=== PATIENT | female | born 1940 | race Caucasian/White ===

== ENCOUNTER 2017-01-15 07:33 | Day surgery (SDC) | payer MEDICARE, OTHER ==
[2017-01-15] VITALS (12 sets, daily range): BP systolic 96–149; BP diastolic 44–87; PULSE 67–93; TEMP 97.8–98.7
[~2017-01-15] VITALS: Ht 162.6 cm; Wt 88.1 kg
[~2017-01-15 07:33] MED LIST: ASPIRIN 81M81 MG/TA2 PO; CALCIUM 600600 MG PO; COENZYME Q-10100 MG PO; COZAAR100 MG PO; DEXILANT60 MG PO; DITROPAN 5MG TAB5 MG PO; EVISTA 60MG60 MG/TAB PO; HAIR FORMULA EX1 TAB; HCTZ12.5TAB PO; LEVOXYL0.075 MG PO; MACRODANTIN100 PO; MOBIC 7.5MG7.5 MG PO; NATURAL E400 IU PO; NEURONTIN300 MG/CAP PO; NEXIUM 40MG40 MG PO; OMEGA 31000 MG PO; PHARMASSURE ZIN50 MG PO; PRAVACHOL 40MG40 MG PO; TENORMIN 5050 MG/TAB PO; TOPROL XL 50MG50 MG PO; ULTRAM 50MG TAB50 MG PO; VITAMIN B COMPL1 TA1 PO; VITAMIN C500 MG PO; VITAMIN D31000 I1 PO; ZYRTEC 10MG10 MG PO
[2017-01-15 08:50] LABS: HEMATOCRIT 36.9 % (37.0-47.0); HEMOGLOBIN 12.4 g/dl (12.5-16.0); MEAN CELL VOLUME 90 fl (80.0-100.0); MEAN CORPUSCULAR HEMOGLOBIN 30 pg (27.0-31.0); MEAN CORPUSCULAR HGB CONC 34 g/dl (33.0-37.0); MEAN PLATELET VOLUME 11.5 fl (7.4-10.4); PLATELET COUNT 231 K/mm3 (130-400); RED BLOOD COUNT 4.12 M/mm3 (4.10-5.30); REDCELL DISTRIBUTION WIDTH-CV 13.1 % (11.5-14.5); WHITE BLOOD COUNT 4.8 K/mm3 (4.8-10.8)
[2017-01-15] MEDS ORDERED: NORCO 325 MG-51 TAB PO (09:20)
[2017-01-15] MEDS ORDERED: NORVASC 5MG5 MG/TAB PO (09:20)
[2017-01-15] MEDS ORDERED: ZANAFLEX CAPSULE4 MG PO (09:21)
[2017-01-15] MEDS ORDERED: PLAVIX 75MG TAB75 MG PO (09:21)
[2017-01-15] MEDS ORDERED: COREG 3.123.125 MG/T PO (09:23)
[2017-01-15] MEDS ORDERED: DIOVAN 160MG160 MG PO (09:23)
[2017-01-15] MEDS ORDERED: LIPITOR 10MG10 MG PO (09:24)
[2017-01-15] MEDS ORDERED: K-TAB10 PO (09:24)
[2017-01-15] MEDS ORDERED: ASPIRIN 81M81 MG/TA2 PO (09:24)
[2017-01-15] MEDS ORDERED: TESSALON P100 MG/CAP PO (09:25)
[2017-01-15] MEDS ORDERED: COLACE 100100 MG/CAP PO (09:26)
[2017-01-15 09:32] LABS: CALCIUM 9.9 mg/dL (8.4-10.2); CREATININE, serum 1.11 mg/dL (0.52-1.25); POTASSIUM 4.2 mmol/L (3.4-5.0)
[2017-01-15 09:59] LABS: INR 1.1 (0.8-3.0); PROTHROMBIN TIME 12.3 SECONDS (9.7-12.8)
[2017-01-16 03:33] VITALS: BP 106/51; PULSE 69; TEMP 98.7
[2017-01-16 08:47] VITALS: BP 93/41; PULSE 66; TEMP 98.2
[2017-01-16 10:58] VITALS: BP 114/49
[2017-01-16] MEDS ORDERED: CLEOCIN HCL300 MG PO (11:31)
== END 2017-01-16 12:15 | disposition home or self-care (01) ==
LOC: EUO 07:33 → COL.CAR 08:40 → MEDICAL 12:19 → EUO 01-16 12:15
PROVIDERS: Internal Medicine Cardiovascular Disease
DX: I44.2 Atrioventricular block, complete (principal); R55 Syncope and collapse; I25.10 Atherosclerotic heart disease of native coronary artery without angina pectoris; I08.3 Combined rheumatic disorders of mitral, aortic and tricuspid valves; I27.2 Other secondary pulmonary hypertension; E78.5 Hyperlipidemia, unspecified; K21.9 Gastro-esophageal reflux disease without esophagitis; D12.6 Benign neoplasm of colon, unspecified; G35 Multiple sclerosis; Z79.01 Long term (current) use of anticoagulants; Z87.891 Personal history of nicotine dependence; Z86.73 Personal history of transient ischemic attack (TIA), and cerebral infarction without residual deficits; Z82.3 Family history of stroke; Z80.9 Family history of malignant neoplasm, unspecified; Z82.49 Family history of ischemic heart disease and other diseases of the circulatory system
CPT/HCPCS: OP; C1769; C1785; C1894; C1898; J2250; J3010; J3370; J7030; J7050; Q9967

== ENCOUNTER 2019-03-30 04:56 | Inpatient (IN) | payer MEDICARE, OTHER ==
[2019-03-30] VITALS (8 sets, daily range): BP systolic 97–148; BP diastolic 40–71; PULSE 78–90; TEMP 97–100.6
[~2019-03-30] VITALS: Ht 162.6 cm; Wt 77.2 kg
[~2019-03-30 04:56] MED LIST changes: +CLEOCIN HCL300 MG PO; +COLACE 100100 MG/CAP PO; +COREG 3.123.125 MG/T PO; +DIOVAN 160MG160 MG PO; +K-TAB10 PO; -LEVOXYL0.075 MG PO; +LEVOXYL0.088 MG PO; +LIPITOR 10MG10 MG PO; +NORCO 325 MG-51 TAB PO; +NORVASC 5MG5 MG/TAB PO; +PLAVIX 75MG TAB75 MG PO; +TESSALON P100 MG/CAP PO; +ZANAFLEX CAPSULE4 MG PO
[2019-03-30 05:27] LABS: BASO # 0.1 (0.0-0.2); BASO % 1.1 % (0.0-2.0); EOS # 0.2 (0.0-0.7); EOS % 2.4 % (0-4.0); GRAN # 4.7 (1.4-6.5); GRAN % 67.6 % (42.2-75.2); HEMATOCRIT 37.3 % (37.0-47.0); HEMOGLOBIN 12.3 g/dl (12.5-16.0); LYMPH # 1.3 (1.2-3.4); LYMPH % 19.2 % (20.0-51.0); MEAN CELL VOLUME 92 fl (80.0-100.0); MEAN CORPUSCULAR HEMOGLOBIN 30 pg (27.0-31.0); MEAN CORPUSCULAR HGB CONC 33 g/dl (33.0-37.0); MEAN PLATELET VOLUME 10.4 fl (7.4-10.4); MONO # 0.7 (0.1-0.6); MONO % 9.6 % (1.7-9.3); PLATELET COUNT 183 K/mm3 (130-400); RED BLOOD COUNT 4.05 M/mm3 (4.10-5.30); REDCELL DISTRIBUTION WIDTH-CV 13.3 % (11.5-14.5)
[2019-03-30 05:31] LABS: INR 1.2 (0.8-3.0); PROTHROMBIN TIME 14.6 SECONDS (9.7-12.8)
[2019-03-30 05:37] LABS: ALANINE AMINOTRANSFERASE 15 U/L (9-52); ALKALINE PHOSPHATASE 52 U/L (50-136); ANION GAP 8 mmol/L (7-16); AST,SGOT 32 U/L (15-37); BILIRUBIN,TOTAL 0.5 mg/dL (0.0-1.0); BLOOD UREA NITROGEN 27 mg/dL (7-17); CALCIUM 9.7 mg/dL (8.4-10.2); CARBON DIOXIDE 25 mmol/L (22-30); CHLORIDE 107 mmol/L (98-107); CREATININE, serum 1.45 (0.52-1.25); GLUCOSE 113 mg/dL (74-106); LIPASE 184 U/L (23-300); POTASSIUM 4.2 mmol/L (3.4-5.0); SODIUM 140 mmol/L (137-145)
[2019-03-30 05:51] LABS: TROPONIN-I < 0.012 ng/mL (0.000-0.035)
[2019-03-30] MEDS ORDERED: PROTONIX 40MG T40 MG PO ×2 (10:05→11:01)
--- NOTE | 2019-03-30 10:13 | NUR ---
Patient arrived to room via stretcher from ER. Upon arriving patient reported having chest pain. PRN nitroglycerin available and administered. Spoke with provider, they were down to assess, received order for PRN morphine and this was administered. O2 sats noted to decrease to 89% on 2L, did increase O2 to 3L, this did not make a change, increased to 4L, currently at 96%. Repeat EKG obtained. Patient states now that morphine has not helped with pain but was noted to have eyes closed and snoring. Family is currently at bedside. Patient stating again that she is having sharp pain and pressure, the pressure is a new complaint at this time. Provider will be notified.
[2019-03-30] MEDS ORDERED: PROLIA60 MG/ML SQ (10:46)
[2019-03-30] MEDS ORDERED: ALLEGRA 180MG180 MG PO (10:47)
[2019-03-30] MEDS ORDERED: MULTI-VITAMIN W1 TA1 PO (10:49)
[2019-03-30] MEDS ORDERED: ELIQUIS 5MG PO (10:50)
[2019-03-30] MEDS ORDERED: LASIX 20MG TABL20 MG PO (10:59)
[2019-03-30] MEDS ORDERED: VESICARE10 MG PO (11:00)
[2019-03-30] MEDS ORDERED: BENICAR 20MG TA20 MG PO (11:00)
[2019-03-30] MEDS ORDERED: MOBIC 7.5MG7.5 MG PO (11:01)
[2019-03-30] MEDS ORDERED: ANTIVERT 12.512.5 MG PO (11:03)
--- NOTE | 2019-03-30 14:11 | NUR ---
SW met with the patient to discuss a discharge plan. The pt lives alone in [place]. The pt uses oxygen at night and receives supplies from [facility] and does not have other DME. Patient reports independence with ADLs. The pt's PCP is Dr. Jones and two dental office manager follwer her care. The pt receives medications from [place] and pt's daughter assists when needed. The pt does have advanced directives in the EMR. PT/OT will be ordered. SW will follow to ensure a safe discharge.
--- NOTE | 2019-03-30 15:14 | NUR ---
Pt report received from ANGEL Boogie. Pt resting in bed upon entry, family at [facility]. Pt is A/O x3. Her breathing is even and unlabored, currently on RA. Pt reports mid sternum chest pain /, PRN pain medication administered. Pt ate approximately half of lunch, denies N/V. IVF infusing into RFA without complications. POC discussed with patient and family who verbalize understanding. No needs at this time. Call light within reach.
--- NOTE | 2019-03-30 18:53 | NUR ---
Pt continues to report chest pain ranging from 3-6/10, PRN Morphine administered. Nitro paste placed to chest. Pt had small amount of emesis this afternoon, denied further nausea. IVF infusing without complications. POC discussed with patient and her family who verbalize understanding. No needs at this time. Call light within reach.
--- NOTE | 2019-03-30 20:23 | NUR ---
PT IN BED WITH HOB ELEVATED TO 60 DEGREE ANGLE. PT'S O2 SATURATIONS WAS REPORTED TO BE 89% ON 2L/NC AND TEMP 100.6. RECHECKED O2 SATURATIONS AND TEMP. O2 SATURATIONS AT 91% ON 2L/NC AND TEMP 99.0 ORALLY. PT WAS ASSISTED UP TO THE BATHROOM AND THEN BACK TO BED. PT ADVISED THAT SHE WAS STARTING TO HAVE PAIN WHEN SHE GOT UP AND IT IS A 2/10 SHARP, FEELS LIKE SOMEONE IS POKING HER WITH A KNIFE. ADVISED PT THAT WILL GIVE PAIN MEDICATION TO HELP WITH THE PAIN. CALL LIGHT WITHIN REACH.
--- NOTE | 2019-03-30 23:01 | NUR ---
PT RESTING IN BED WITH HOB ELEVATED TO 45 DEGREE ANGLE AND O2 ON 3L/NC. PT'S TEMP SLOWLY GOING UP. IT WAS 99.0 AT 2000 AND AT 2200 WENT UP TO 99.2. CALLED DONALD COLLAZO TO REQUEST TYLENOL, BUT DONALD COLLAZO WANTED TO WAIT TO SEE IF HER TEMP GOES UP ANYMORE. PT DOES NOT FEEL HOT OR WARM. PT IS COMFORTABLE NOW AND ADVISED THAT THE LAST PAIN MEDICATION THAT WAS GIVEN TO HER MADE HER FEEL SO MUCH BETTER. PT HAS CALL LIGHT WITHIN REACH AND DECLINES ANY FOOD AT THIS TIME. PT IS AWARE THAT SHE IS NPO AT MIDNIGHT.
[2019-03-31] VITALS (15 sets, daily range): BP systolic 91–145; BP diastolic 45–63; PULSE 61–134; TEMP 98.4–99.9
[2019-03-31 06:34] LABS: BASO % 0.5 % (0.0-2.0); EOS # 0.1 (0.0-0.7); EOS % 1.2 % (0-4.0); GRAN # 4.9 (1.4-6.5); GRAN % 62.9 % (42.2-75.2); LYMPH # 1.7 (1.2-3.4); LYMPH % 21.5 % (20.0-51.0); MEAN CELL VOLUME 94 fl (80.0-100.0); MEAN CORPUSCULAR HGB CONC 32 g/dl (33.0-37.0); MEAN PLATELET VOLUME 11.1 fl (7.4-10.4); MONO # 1.1 (0.1-0.6); MONO % 13.6 % (1.7-9.3); PLATELET COUNT 146 K/mm3 (130-400); RED BLOOD COUNT 3.36 M/mm3 (4.10-5.30); REDCELL DISTRIBUTION WIDTH-CV 13.6 % (11.5-14.5)
[2019-03-31 06:41] LABS: HEMATOCRIT 31.5 % (37.0-47.0); HEMOGLOBIN 10.1 g/dl (12.5-16.0); MEAN CORPUSCULAR HEMOGLOBIN 30 pg (27.0-31.0)
[2019-03-31 06:56] LABS: ANION GAP 5 mmol/L (7-16); BLOOD UREA NITROGEN 20 mg/dL (7-17); CALCIUM 8.2 mg/dL (8.4-10.2); CARBON DIOXIDE 24 mmol/L (22-30); CHLORIDE 109 mmol/L (98-107); CHOLESTEROL 137 mg/dL (120-200); CHOLESTEROL RISK RATIO 2.9; CREATININE, serum 1.18 (0.52-1.25); GLUCOSE 97 mg/dL (74-106); HDL CHOLESTEROL 47 mg/dL; LDL CHOLESTEROL 74 mg/dL; POTASSIUM 4.3 mmol/L (3.4-5.0); SODIUM 138 mmol/L (137-145); TRIGLYCERIDE 81 mg/dL
[2019-03-31 07:02] LABS: TROPONIN-I < 0.012 ng/mL (0.000-0.035)
--- NOTE | 2019-03-31 07:26 | NUR ---
UNEVENTFUL NIGHT FOR PT. GAVE PT MORPHINE ABOUT 2036 FOR PAIN THAT WAS RATED A 5/10 AND AFTER THAT PT HAD NO MORE C/O PAIN. PT WAS AWARE THAT SHE WAS NPO AFTER MIDNIGHT AND HAD NOTHING TO EAT OR DRINK AFTER THAT. PT DID GET UP A FEW TIMES TO GO TO THE BATHROOM AND THEN BACK TO BED. NO ASSISTIVE DEVICES USED, GAIT STEADY. PT ADVISED THAT HER SISTER HAD JUST , AND THE BURIAL WAS ON 03/30, BUT SHE COULD NOT MAKE IT BECAUSE SHE WAS HAVING CHEST PAIN. PT'S DAUGHTER CAME BY THIS AM AND PT ADVISED THAT SHE DID NOT HAVE ANY PAIN ALL NIGHT LONG. PT IN BED WITH HOB ELEVATED TO 45 DEGREE ANGLE, CALL LIGHT WITHIN REACH AND NO NEEDS AT THIS TIME.
--- NOTE | 2019-03-31 08:00 | NUR ---
FOUND PT OFF O2 RA SP02 80%. PLACED BACK ON 4 LPMNC 91%.
--- NOTE | 2019-03-31 08:20 | NUR ---
Patient has gone for stress test.
--- NOTE | 2019-03-31 10:40 | NUR ---
Initial visit; Patient's daughter thanked Transfer Clerk for looking in on her and offering her mom God's blessings and prayer if she would like.
--- NOTE | 2019-03-31 11:31 | NUR ---
PT SATS FOUND TO BE 88% ON 2L PER NC, INCREASED O2 AT THIS TIME TO 4.5L TO MAINTAIN SAT AT 90%. PT IS SLEEPING AND DOES NOT APPEAR TO BE IN DISTRESS. FAMILY AT BEDSIDE.
[2019-03-31 16:18] LABS: COLLECTION METHOD CLEAN CATCH
[2019-03-31 16:48] LABS: MUCOUS Present /lpf; PH 5 (5-8); SQUAMOUS EPITHELIAL 0-2 /hpf; URINE APPEARANCE Hazy; URINE BACTERIA None Seen /hpf; URINE BILIRUBIN Negative (NEGATIVE); URINE BLOOD Negative (NEGATIVE); URINE COLOR Yellow; URINE GLUCOSE Negative (NEGATIVE); URINE KETONE Negative (NEGATIVE); URINE LEUKOCYTE ESTERASE Negative (NEGATIVE); URINE NITRATE Negative (NEGATIVE); URINE PROTEIN(semi-quant) Negative (NEGATIVE); URINE RBC 0-2 /hpf; URINE UROBILINOGEN Negative (NEGATIVE)
--- NOTE | 2019-03-31 18:08 | NUR ---
Patient is awaiting supper in room. Has no pain. Call light and personal items are within reach.
[2019-03-31 18:13] LABS: HEMOGLOBIN 10.8 g/dl (12.5-16.0); MEAN CELL VOLUME 92 fl (80.0-100.0); MEAN CORPUSCULAR HEMOGLOBIN 31 pg (27.0-31.0); MEAN CORPUSCULAR HGB CONC 33 g/dl (33.0-37.0); MEAN PLATELET VOLUME 11.3 fl (7.4-10.4); PLATELET COUNT 151 K/mm3 (130-400); RED BLOOD COUNT 3.52 M/mm3 (4.10-5.30); REDCELL DISTRIBUTION WIDTH-CV 13.5 % (11.5-14.5)
[2019-03-31 18:19] LABS: HEMATOCRIT 32.3 % (37.0-47.0)
[2019-03-31 18:22] LABS: INR 1.2 (0.8-3.0); PROTHROMBIN TIME 14.2 SECONDS (9.7-12.8)
[2019-03-31 18:25] LABS: PARTIAL THROMBOPLASTIN TIME 31.6 SECONDS (26.0-37.0)
[2019-03-31 18:27] LABS: CALCIUM 8.2 mg/dL (8.4-10.2); CREATININE, serum 1.1 (0.52-1.25); POTASSIUM 4.2 mmol/L (3.4-5.0)
--- NOTE | 2019-03-31 20:55 | NUR ---
Patient resting in bed. Alert and oriented. Vitals normal. Denies any pain at this time. Pulses strong. +1 edema in BLE. Was wondering about what time her procedure was in the AM. Denies any further needs at this time. Call light within reach.
[2019-04-01] VITALS (11 sets, daily range): BP systolic 123–160; BP diastolic 48–77; PULSE 74–87; TEMP 98.4–99
--- NOTE | 2019-04-01 05:28 | NUR ---
Patient had uneventful night. Had some issues with tele box, wires changed and pads changed. Resting in bed. Denied pain throughout the night. Call light within reach.
--- NOTE | 2019-04-01 07:00 | NUR ---
Report received from Fabio Urbina. Pt in bed resting with family at bedside, anticipating heart cath today. Denies needs, will continue to monitor.
--- NOTE | 2019-04-01 07:03 | NUR ---
Report given to ANGEL Monsalve.
[2019-04-01 07:38] LABS: BASO # 0.1 (0.0-0.2); BASO % 0.7 % (0.0-2.0); EOS # 0.1 (0.0-0.7); EOS % 1.8 % (0-4.0); GRAN # 5.2 (1.4-6.5); GRAN % 67.6 % (42.2-75.2); HEMOGLOBIN 10.5 g/dl (12.5-16.0); LYMPH # 1.4 (1.2-3.4); MEAN CELL VOLUME 94 fl (80.0-100.0); MEAN CORPUSCULAR HEMOGLOBIN 30 pg (27.0-31.0); MEAN CORPUSCULAR HGB CONC 32 g/dl (33.0-37.0); MEAN PLATELET VOLUME 11.1 fl (7.4-10.4); MONO # 0.9 (0.1-0.6); MONO % 11.5 % (1.7-9.3); PLATELET COUNT 152 K/mm3 (130-400); RED BLOOD COUNT 3.49 M/mm3 (4.10-5.30); REDCELL DISTRIBUTION WIDTH-CV 13.5 % (11.5-14.5)
[2019-04-01 07:40] LABS: HEMATOCRIT 32.9 % (37.0-47.0)
[2019-04-01 07:49] LABS: CALCIUM 7.9 mg/dL (8.4-10.2); CREATININE, serum 1.12 (0.52-1.25); MAGNESIUM 1.8 mg/dL (1.6-2.3); POTASSIUM 4.2 mmol/L (3.4-5.0)
--- NOTE | 2019-04-01 08:30 | NUR ---
pt left floor at this time with equipment operator/laborer staff and family via bed for equipment operator/laborer. Pt doing well. Assessmetdemetra akins.ramya Denies pain. IVF to [facility]. Will wait return.
--- NOTE | 2019-04-01 08:57 | NUR ---
SEE MERGE DOCUMENTATION FOR MEDICATION ADMINISTRATION TIMES AND INTRA/POST PROCEDURE SEDATION ASSESSMENTS.
--- NOTE | 2019-04-01 10:00 | NUR ---
Pt transferred from seed laboratory technician to inpt room 351 at this time. Prior to transfer, MD notified of slight swelling to pt right forearm following right radial access. Forearm palpated without hematoma noted. No bruising assessed, pt denies pain at this time. TR band in place with 11cc air present. SPO2 pleth showing no indication of impaired blood flow. MD assessing site, ok with pt returning to room with instructions to monitor arm for changes. Pt transferred to inpt room by this RN. VS's monitors attached; VS's WNL. Pt remains 3L/O2 which was pre-procedure rate. Bedside handoff to ANGEL Monsalve. Right radial site remains stable with no bleeding/brusing noted. No s/sx of impaired circulation. Right forearm remains unchanged and without pain. All questions answered at this time.
--- NOTE | 2019-04-01 10:00 | NUR ---
Pt returned to floor at this time vai bed with quality assurance lab technician staff. R radial site CDI with TR band in place, R arm is puffy but not hemotoma palpated, pulses good. disucssed need to rest arm and plan ot deflate in a few hours. Will continue to monitor.
[2019-04-01] MEDS ORDERED: CARDIZEM CD 18180 MG PO (10:38)
[2019-04-01] MEDS ORDERED: ASPIRIN E.C. 8181 MG PO (10:38)
[2019-04-01] MEDS ORDERED: LOVAZA1 GM PO (10:38)
[2019-04-01] MEDS ORDERED: PACERONE400 MG PO (10:39)
[2019-04-01] MEDS ORDERED: COREG 6.256.25 MG/TA PO (10:44)
[2019-04-01] MEDS ORDERED: NORVASC 5MG5 MG/TAB PO (10:44)
--- NOTE | 2019-04-01 11:00 | NUR ---
This RN reassessing pt right arm per MD request. Pt reports return of sensation to arm and hand. Denies any pain to forearm or distal extremity. Right forearm remains more edematous than left, but degree of edema has not increased. Forearm palpated with no hematoma noted. Pt denies any pain or discomfort with palpation. Dr Allison notified of this information, requests ice be applied to forearm. This RN relaying this information to pts primary RN.
--- NOTE | 2019-04-01 13:13 | NUR ---
SW attended clinical rounds to discuss discharge plan. It has been recommended for patient to receive home health services for PT, OT, and nursing. Patient and family are agreeable. Patient reports she would like to use [facility] because she has used them in the past. Patient will also receive an exercise oximetry to evaluate if she requires O2 at home. Patient normally uses O2 only at night. ZAKIYA faxed referral to [facility] and also contacted the DME company that supplies the O2, [facility] [employer], to inform them she may require continuous O2. ZAKIYA will follow up with patient after the exercise oximetry.
--- NOTE | 2019-04-01 13:51 | NUR ---
PT WALKED APPROX 100 FT. REQUIRED 3 LPM TO MAINTAIN SPO2 OF 93-94%
--- NOTE | 2019-04-01 14:24 | NUR ---
Deflated TR band and removed dressing and placed bandaid over site, CDI. Pt denies needs, feels swelling has improved. Will continue to monitor.
--- NOTE | 2019-04-01 14:26 | NUR ---
ZAKIYA followed up with patient and family to discuss O2 and home health. Patient was seen by PT and patient will not require home health PT or OT. Patient will receive home health nursing through [facility]. Patient will also require continuous oxygen. ZAKIYA faxed updated O2 orders to [facility]. ZAKIYA hector fax discharge orders to [facility] once they're completed.
[2019-04-01] MEDS ORDERED: OMEGA-3 FISH1000 MG PO (14:32)
--- NOTE | 2019-04-01 17:50 | NUR ---
Discharge teaching completed at this time. INT dc'd, tip intact. Reviewed home meds, discharge packet, answered all questions, pt recieved packet and home scripts. Pt left with all belongings, escorted out via w/c with medical staff, daughter to drive home, criteria met.
== END 2019-04-01 17:05 | disposition home health service (06) | DRG 286 ==
LOC: COL.ER 04:56 → MEDICAL 06:42
PROVIDERS: Emergency Medicine; Internal Medicine Cardiovascular Disease; Nurse Practitioner Family; Physician Assistant; ADMIT Hospitalist
PROC: 4A023N7 Measurement of Cardiac Sampling and Pressure, Left Heart, Percutaneous Approach (ICD-10-PCS; principal; 2019-04-01)
PROC: B2111ZZ Fluoroscopy of Multiple Coronary Arteries using Low Osmolar Contrast (ICD-10-PCS; 2019-04-01)
DX: I20.1 Angina pectoris with documented spasm (principal); J96.01 Acute respiratory failure with hypoxia; N17.9 Acute kidney failure, unspecified; I48.0 Paroxysmal atrial fibrillation; E03.9 Hypothyroidism, unspecified; G35 Multiple sclerosis; E78.5 Hyperlipidemia, unspecified; I10 Essential (primary) hypertension; K21.9 Gastro-esophageal reflux disease without esophagitis; M81.0 Age-related osteoporosis without current pathological fracture; N32.81 Overactive bladder; Z95.0 Presence of cardiac pacemaker; Z86.73 Personal history of transient ischemic attack (TIA), and cerebral infarction without residual deficits; Z87.891 Personal history of nicotine dependence; Z79.01 Long term (current) use of anticoagulants; Z88.0 Allergy status to penicillin; Z88.2 Allergy status to sulfonamides; Z88.5 Allergy status to narcotic agent; Z88.6 Allergy status to analgesic agent
CPT/HCPCS: 99232-AI; 99239; A9284; A9500; C1769; G0378; J1644; J2250; J2270; J2785; J3010; J7030; Q9967

== ENCOUNTER 2024-04-14 11:33 | Emergency (ER) | payer MEDICARE, OTHER ==
[~2024-04-14] VITALS: Ht 162.6 cm; Wt 69.5 kg
[~2024-04-14 11:33] MED LIST changes: +ALLEGRA 180MG180 MG PO; +ANTIVERT 12.512.5 MG PO; +ASPIRIN E.C. 8181 MG PO; +BENICAR 20MG TA20 MG PO; +CARDIZEM CD 18180 MG PO; +COREG 6.256.25 MG/TA PO; +ELIQUIS 5MG PO; +LASIX 20MG TABL20 MG PO; +LOVAZA1 GM PO; +MULTI-VITAMIN W1 TA1 PO; +OMEGA-3 FISH1000 MG PO; +PACERONE400 MG PO; +PROLIA60 MG/ML SQ; +PROTONIX 40MG T40 MG PO; +VESICARE10 MG PO
[2024-04-14 11:37] VITALS: TEMP 98.1
[2024-04-14] MEDS ORDERED: Acetaminophen 500 MG TAB PO ONE (12:15)
[2024-04-14 12:20] VITALS: BP 129/86; PULSE 79
== END 2024-04-14 12:20 | disposition home or self-care (01) ==
LOC: COL.ER 11:33
DX: S81.812A Laceration without foreign body, left lower leg, initial encounter (principal); S51.011A Laceration without foreign body of right elbow, initial encounter; W45.8XXA Other foreign body or object entering through skin, initial encounter; Y92.512 Supermarket, store or market as the place of occurrence of the external cause